=== PATIENT | male | born 1970 | race Caucasian/White ===

== ENCOUNTER → 2020-10-15 09:27 | Outpatient (CLI) | payer BC, SELFPAY ==
--- NOTE | ~2020-10-15 | XR_ITS ---
EXAMINATION: XR knee LT 3V DATE: 10/15/2020 09:44 INDICATION: Left knee pain TECHNIQUE: Three views of the left knee were obtained. COMPARISON: 08/29/2016 FINDINGS: Alignment is normal. No fracture or osteochondral lesion. Mild osteoarthritis of the medial compartment is unchanged. There is a moderate size joint effusion. Again noted is heterotopic ossifi cation in the medial collateral ligament likely reflecting prior sprain. IMPRESSION: 1. Mild osteoarthritis without acute osseous abnormality. 2. Moderate-sized knee joint effusion, chronic. Reviewed, dictated and finalized at location A. [facility]
== END ==
PROVIDERS: PCP Family Medicine; Visit Provider Physician Assistant
DX: M25.462 Effusion, left knee (principal); M17.12 Unilateral primary osteoarthritis, left knee
CPT/HCPCS: 73562

== ENCOUNTER 2021-10-29 07:33 | Outpatient (CLI) | payer BC, SELFPAY ==
--- NOTE | ~2021-10-29 | US_ITS ---
EXAMINATION: US right upper quadrant DATE: 10/29/2021 08:18 INDICATION: Abnormal levels of other serum enzymes. TECHNIQUE: Multiple grayscale and Doppler ultrasound images of the abdomen were obtained. COMPARISON: None FINDINGS: The pancreas is not well visualized. There is diffuse hepatic steatosis. No liver surface n odularity. The gallbladder, common duct, and main portal vein are not visualized. IMPRESSION: 1. Diffuse hepatic steatosis. 2. Pancreas, gallbladder, common duct, and main portal vein not visualized due to obesity and hepatic steatosis. Reviewed, dictated and finalized at location B. [facility] [employer]
== END 2021-10-29 07:34 ==
PROVIDERS: PCP Family Medicine; Visit Provider Physician Assistant
DX: R74.8 Abnormal levels of other serum enzymes (principal); K76.0 Fatty (change of) liver, not elsewhere classified; E66.9 Obesity, unspecified
CPT/HCPCS: 76705

== ENCOUNTER 2024-08-29 13:40 | Outpatient (CLI) | payer BC, SELFPAY ==
--- NOTE | ~2024-08-29 | CT_ITS ---
CT Scan of the Chest without Contrast: Clinical Indication: Lung cancer screening, nicotine dependence Technique: Contiguous sections were acquired throughout the chest without intravenous contrast. Dose reduction technique was used on this scan by utilizing automated exposure control and iterative recon struction technique. The dose-length product (DLP) was 246.37 mGy-cm. Findings: There is no evidence of any significant mediastinal, hilar or axillary lymphadenopathy. The mediastin al soft tissues appear normal. There is no evidence of pleural or pericardial effusion. The lungs are clear. No pulmonary nodules or infiltrates are noted. Images through the upper abdomen reveal no abnormalities. Impression: Lung RADS 1: Negative. 12 month follow-up screening CT advised. Reviewed, dictated and finalized at location . [employer] Impression: Lung RADS 1: Negative. 12 month follow-up screening CT advised.
== END 2024-08-29 13:41 | disposition home or self-care (01) ==
LOC: MICIMG 13:40
PROVIDERS: PCP Family Medicine; Visit Provider Physician Assistant
DX: Z12.2 Encounter for screening for malignant neoplasm of respiratory organs (principal); Z87.891 Personal history of nicotine dependence
CPT/HCPCS: 71271

== ENCOUNTER 2025-09-02 09:38 | Outpatient (CLI) | payer BC, SELFPAY ==
--- NOTE | ~2025-09-02 | CT_ITS ---
EXAMINATION:CT lung screening DATE: 09/02/2025 09:55 INDICATION: Screening TECHNIQUE: Computed tomography (CT) of the chest was performed without intravenous contrast. The dose-length product (DLP) was 198.51 mGy-cm. COMPARISON: August 29, 2024 FINDINGS: No discrete nodules or masses have developed since the previous exam. Since the previous exam, small focal areas of pleural and subpleural parenchymal groundglass opacification have developed anteriorly in the mid portions of both upper lobes. The largest is image 49 series 4 and measures approximately 2.0 x 1.5 cm. The remainder the lung aguilar are stable. Central large airways are patent. Heart and great vessels appear stable. No acute process seen in the visualized portions of the upper abdomen or extrathoracic soft tissues. IMPRESSION: 1. No suspicious nodules or masses. 2. Small bilateral areas of groundglass opacification in the anterior upper lobe pleural and subpleural regions bilaterally are suggestive of an atypical inflammatory small airways process, small areas of alveolar fibrosing changes. LUNG RADS 3. Follow-up low-dose lung cancer screening chest CT in 6 months or sooner if clinically appropriate. Reviewed, dictated and finalized at location A. NTERER IMPRESSION: 1. No suspicious nodules or masses. 2. Small bilateral areas of groundglass opacification in the anterior upper lob e pleural and subpleural regions bilaterally are suggestive of an atypical infl ammatory small airways process, small areas of alveolar fibrosing changes. LUNG RADS 3. Follow-up low-dose lung cancer screening chest CT in 6 months or s ooner if clinically appropriate.
== END 2025-09-02 09:39 | disposition home or self-care (01) ==
LOC: MICIMG 09:39
PROVIDERS: PCP Family Medicine
DX: Z12.2 Encounter for screening for malignant neoplasm of respiratory organs (principal); R91.8 Other nonspecific abnormal finding of lung field; Z87.891 Personal history of nicotine dependence
CPT/HCPCS: 71271